=== PATIENT | male | born 2000 | race Caucasian/White ===

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

== ENCOUNTER 2020-08-18 08:43 | Emergency (ER) | payer OTHER, MEDICAID ==
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
[2020-08-18] MEDS ORDERED: Iopamidol 755 MG/ML 50 ML Bottle IVPUSH ONE (08:58)
[2020-08-18] MEDS ORDERED: Iopamidol 612 MG/ML 100 ML Bottle IVPUSH ONE (08:58)
[2020-08-18] MEDS ORDERED: Sodium Chloride 0.9% 10 ML Syringe FLUSH PRN (08:58)
[2020-08-18] MEDS ORDERED: Etomidate 2 MG/ML 20 ML SDV IVPUSH ONE (09:00)
[2020-08-18] MEDS ORDERED: Succinylcholine 200 MG/10 ML MDV ONE (09:00)
[2020-08-18] MEDS ORDERED: fentaNYL 100 MCG/2 ML SDV ONE ×2 (09:00→10:53)
[2020-08-18] MEDS ORDERED: Sodium Chloride 0.9% 1,000 ML IV SCH (09:00)
[2020-08-18] MEDS ORDERED: Ketamine 500 mg/10 ML MDV ONE (09:00)
[2020-08-18] MEDS ORDERED: Midazolam 1 MG/ML 5 ML SDV ONE (09:00)
[2020-08-18] MEDS ORDERED: Sodium Chloride 0.9% 1,000 ML IV ONE (09:28)
[2020-08-18] MEDS ORDERED: ceFAZolin 1 GM in Premix Bag 1 BAG IV ONE (09:50)
[2020-08-18] MEDS ORDERED: Diphtheria,Pertussis(Acell),Tetanus Vaccine 0.5 ML Syringe IM ONE (09:53)
[2020-08-18] MEDS ORDERED: Ketamine 500 MG in Sodium Chloride 0.9% 490 ML IV SCH (10:00)
[2020-08-18] MEDS ORDERED: propofoL 100 ML IV SCH (10:26)
[2020-08-18] MEDS ORDERED: Ketamine 500 mg/10 ML MDV IV ONE (10:40)
[2020-08-18] MEDS ORDERED: fentaNYL 100 MCG/2 ML SDV IVPUSH ONE (10:53)
--- NOTE | 2020-08-18 10:55 | CT ---
CT lumbar spine Technique: Multiple axial sections were obtained to the lumbar spine. Reconstructed coronal and sagittal images were obtained. Findings: Vertebral body heights and disc spaces are maintained. No fracture is seen within the lumbar spine. No significant degenerative change is appreciated within the lumbar spine on this exam. Fracture is noted within the lower ribs on both sides. Impression: 1. Fractures within the lower ribs on both sides. 2. Nothing acute is otherwise seen on CT study of the lumbar spine. Diagnostic code #3
--- NOTE | 2020-08-18 11:01 | CT ---
CT cervical spine Technique: Multiple axial sections were obtained from above C1 inferiorly to the top of T2. Reconstructed coronal and sagittal images were obtained. Findings: Diffuse soft tissue air is seen within the left side of the neck and extending down the left side of the chest. Vertebral body heights and disc spaces are maintained. Bilateral rib fractures are seen within the posterior first and second ribs. No cervical spine fracture is seen. No subluxation is seen. No bony central or bony neural foraminal stenosis is seen. Endotracheal tube is seen with the inferior edge not visualized on this study. Impression: 1. Bilateral rib fractures seen posteriorly within the first and second ribs. 2. Diffuse soft tissue air within the left neck extending down the left chest. 3. Endotracheal tube is seen. 4. No acute abnormality is otherwise seen within the cervical spine. Diagnostic code #3
--- NOTE | 2020-08-18 11:02 | CT ---
CT thoracic spine Technique: Multiple axial sections to the thoracic spine were obtained. Reconstructed coronal and sagittal images were obtained. Comparison: No prior thoracic spine imaging. Findings: Vertebral body heights and disc spaces are maintained. Diffuse rib fractures are noted. No fracture is appreciated within the thoracic spine. No bony central or bony neural foraminal stenosis is seen. Diffuse soft tissue air is seen within the left and posterior chest wall. Endotracheal tube terminates before the natasha. Impression: 1. Numerous rib fractures which will be described on CT chest. 2. Soft tissue air within the anterior and posterior left chest. 3. No acute fracture is seen within the thoracic spine. Diagnostic code #3
--- NOTE | 2020-08-18 11:04 | CT ---
Head CT Technique: Multiple axial sections through the brain were obtained. Reconstructed coronal and sagittal images were obtained. Findings: Ventricles along with basal cisterns and sulci over the convexities are within normal limits for the patient's age. No abnormal parenchymal densities are seen. No evidence of intracranial hemorrhage. No midline shift or mass-effect is appreciated. Bone window settings were reviewed. Nothing acute is seen within the visualized paranasal sinuses. Mastoid sinuses also show nothing acute. No acute skull fracture is appreciated. Endotracheal tube is noted. Impression: 1. Endotracheal tube is noted. 2. No acute intracranial abnormality is appreciated. Diagnostic code #2
--- NOTE | 2020-08-18 11:33 | CT ---
CT chest Technique: Multiple axial sections were obtained from above the lung apices inferiorly through the lung bases. Intravenous contrast was utilized. Reconstructed coronal and sagittal images were obtained. Comparison: No chest imaging available. Findings: Endotracheal tube is seen which terminates above the natasha. Thoracic aorta shows no aneurysm. Pulmonary arteries are opacified and are normal in size. No pericardial thickening is appreciated. Diffuse parenchymal densities are seen posteriorly within both lungs most likely representing prominent pulmonary contusions and atelectasis. Left-sided chest tube is noted with small left-sided pneumothorax being seen. Fractures involve the posterior right first, second, third, fourth, fifth, tenth (in 2 places) ribs and lateral sixth and seventh ribs. Fractures are seen which involve the posterior left first, second, third, fourth, fifth, sixth, seventh, ninth, tenth and eleventh ribs. Impression: 1. Diffuse lung consolidation posteriorly within both lungs most likely representing areas of lung contusion and atelectasis. 2. Small left-sided pneumothorax with left-sided chest tube. 3. Numerous right and left rib fractures as noted above. Several rib fractures show some displacement. 4. Endotracheal tube is seen. Diagnostic code #5 CT abdomen and pelvis Technique: Multiple axial sections were obtained from above the dome of the diaphragm inferiorly through the pubic symphysis. Intravenous contrast was utilized. Reconstructed coronal and sagittal images were obtained. Comparison: Prior abdomen and pelvis CT dated 12/19/14 and abdominal x-ray dated 11/19/18. Findings: Liver shows a low density finding within the posterior caudate lobe and right lobe. This area measures approximately 2.6 cm in size and is compatible with a small laceration. This finding causes a small amount of blood anterior to the right kidney. No additional liver abnormality is seen. Spleen is normal. Adrenal glands show no nodule. Pancreas appears within normal limits. Gallbladder is not seen compatible with previous cholecystectomy. Kidneys show symmetric contrast enhancement with no hydronephrosis or mass. Small fat-containing anterior abdominal wall hernia is noted. Abdominal aorta shows no aneurysm. No retroperitoneal adenopathy or mesenteric abnormalities are seen. No pelvic mass or adenopathy is seen. Sen catheter is noted within the bladder. Appendix is felt to be visualized and is normal. No free fluid or inflammatory change is appreciated. Bone window setting shows no discrete fracture within the hips or within the pelvis. Catheter appears to enter the right femoral vein and terminates within the proximal right common iliac artery. Impression: 1. Abnormality within the posterior caudate lobe/right lobe. This measures about 2.6 cm. This is believed to represent a grade 2 liver injury. There is a small amount of blood extending from this lesion anterior to the right kidney. 2. Small fat-containing anterior abdominal wall hernia. 3. Nothing acute is otherwise seen on CT study of the abdomen and pelvis. 4. Right femoral catheter as noted above. Diagnostic code #3
--- NOTE | 2020-08-18 11:42 | CR ---
Chest: Portable supine view of the chest was obtained. Comparison: Subsequent chest CT study performed on the same day. Diffuse air is noted within the left chest. Left-sided pneumothorax is noted. Diffuse parenchymal densities are seen compatible with pulmonary contusions and atelectasis. Heart size is normal. Numerous rib fractures are noted which are better seen on chest CT. Impression: 1. Diffuse air within the left side of the chest. 2. Left-sided pneumothorax is seen. 3. Diffuse increased density compatible with pulmonary contusions and atelectasis. 4. Bilateral rib fractures which are better noted on chest CT study. Diagnostic code #3
--- NOTE | 2020-08-18 13:47 | PCM.SN.2 ---
- Free Text/Narrative Note: called to intubate patient by ER before chest tube placement for left hemothorax. 7.5 ett placed with assistance of glidescope. etco2 confirmed with [facility].
[2020-08-18 14:54] VITALS: PULSE 124
[2020-08-18 14:55] VITALS: BP 105/86
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
== END 2020-08-18 11:15 ==
LOC: JD.ED 08:43
DX: S27.0XXA Traumatic pneumothorax, initial encounter (principal); S27.322A Contusion of lung, bilateral, initial encounter; S22.43XA Multiple fractures of ribs, bilateral, initial encounter for closed fracture; S36.115A Moderate laceration of liver, initial encounter; Q90.9 Down syndrome, unspecified; Z23 Encounter for immunization; V89.2XXA Person injured in unspecified motor-vehicle accident, traffic, initial encounter; Y92.410 Unspecified street and highway as the place of occurrence of the external cause
CPT/HCPCS: 29125; 31500; 32551; 36415; 36430; 36556; 43752; 51702; 70450; 71045; 71260; 72125; 72128; 72131; 74177; 80053; 83735; 83880; 84484; 85025; 85610; 85730; 86140; 86922; 90471; 90715; 96365; 96375; 99291; 99292; G0390; J0330; J0690; J2250; J2704; J3010; J3490; J7030; J7040; P9016; 86850; 86900; 86901